=== PATIENT | female | born 1940 | race Caucasian/White ===

== ENCOUNTER 2016-05-04 21:01 | Emergency (ER) | payer OTHER ==
[2016-05-04] MEDS ORDERED: IPRATROPIUM/ALBUTEROL 3 ML DEYVIAL ONE (21:07)
--- NOTE | 2016-05-04 21:21 | EDPHY ---
H & P Time Seen by Provider: 05/04/16 21:10 HPI/ROS: CHIEF COMPLAINT: Right leg bruising, calf swelling HISTORY OF PRESENT ILLNESS: The patient is status post right hip surgery on in the week of March. She was discharged to rehab and eventually was discharged home last Thursday. She presents to the ED tonight after she developed some increased pain in bruising along the lateral aspect of her leg extending below the knee into the calf. The patient does have chronic dyspnea from her COPD. She reports slight worsening dyspnea secondary to feeling anxious. The patient denies pleuritic chest pain. The patient had been on a anticoagulant postoperatively. She believes she stop taking at within the past week. The patient does have a chronic hematoma to her surgical incision which is not increased in size. She denies fever. The patient tells me she had been on Lidoderm patches for her leg pain following surgery but this was discontinued after she left rehab. The patient denies additional acute complaints. She has not sustained a new fall or trauma. REVIEW OF SYSTEMS: A comprehensive 10 point review of systems is otherwise negative aside from elements mentioned in the history of present illness. Source: Patient Exam Limitations: No limitations - Personal History Tetanus Vaccine Date: 2007 - Medical/Surgical History Hx Asthma: No Hx Chronic Respiratory Disease: Yes Hx Diabetes: No Hx Cardiac Disease: No Hx Renal Disease: No Hx Cirrhosis: No Hx Alcoholism: No Hx HIV/AIDS: No Hx Splenectomy or Spleen Trauma: No Other PMH: Past medical history: COPD; HTN - Social History Smoking Status: Former smoker - Physical Exam Exam: General Appearance: Alert, thin female, frail Head: Atraumatic Eyes: Pupils equal, round, reactive ENT, Mouth: No hemotympanum, no oral trauma Neck: Nontender, trachea midline Respiratory: Tachypnea, distant breath sounds, no wheezing, no crackles Cardiovascular: Regular rate and rhythm Abdomen: Abdomen is soft and nontender, pelvis stable Skin: Surgical incision is clean dry and intact, ecchymotic changes noted throughout the lateral aspect of the right leg below the knee into the calf. Back: No midline T/L/S pain Extremities: Stable sub incisional hematoma noted to the right hip, slight asymmetric swelling noted to the right calf, minimal calf tenderness, tenderness to palpation along the area of the hematoma and ecchymoses of the right femur Neurological: 5/5 strength noted at the right lower extremity. Sensation intact to light touch Constitutional: Initial Vital Signs Temperature (C) 36.9 C 05/04/16 21:14 Heart Rate 88 05/04/16 21:14 Respiratory Rate 28 H 05/04/16 21:14 Blood Pressure 149/89 H 05/04/16 21:14 O2 Sat (%) 94 05/04/16 21:14 O2 Delivery Mode Nasal Cannula O2 (L/minute) 5 Allergies/Adverse Reactions: aspirin Allergy (Verified 04/06/16 20:09) NOSE BLEED Home Medications: Medication Instructions Recorded ALPRAZolam [Xanax 0.25 MG (*)] 0.125 mg PO TID PRN 09/06/14 Albuterol [Proventil Inhaler HFA 1 - 2 puffs IH Q4 PRN 09/06/14 (*)] Fluticasone/Salmeter 250/50Mcg 1 puffs IH BID 09/06/14 [Advair 250/50 (*)] Lisinopril [Zestril 10 mg (*)] 10 mg PO DAILY 09/06/14 Mometasone Furoate Nasal [Nasonex] 2 sprays NASAL BID PRN 01/15/15 Albuterol [Proventil Neb] 3 ml IH Q2 PRN #100 deyvial 06/10/15 predniSONE 30 mg PO DAILY 04/06/16 Ferrous Sulfate [Ferrous Sulf 325 325 mg PO BID #0 tab 04/18/16 MG (*)] Tiotropium Inhaler [Spiriva 18 mcg IH DAILY #0 mdi 04/18/16 Handihaler] predniSONE 30 mg PO DAILY #0 tablet 04/18/16 Lidocaine 5% [Lidoderm 5% Patch 2 ea TD DAILY #30 patch 05/04/16 (*)] Senokot 05/04/16 Xanax 05/04/16 Medical Decision Making - Diagnostics Imaging: Right leg ultrasound: Negative for DVT. Resolving seroma. Chest x-ray: Images reviewed by myself and discussed with radiologist Dr. Alcazar. Negative for focal infiltrate, chronic COPD is noted. ED Course/Re-evaluation: The patient presents to the ED with complaints of right calf pain and swelling. The patient has no evidence of a DVT. She does have evidence of a resolving hematoma. She is developing some dependent ecchymosis. The patient did receive a Lidoderm patch in the ED. The patient did receive a DuoNeb. Her chest x-ray demonstrates no evidence of a focal pneumonia. I do feel the patient can be discharged home with a prescription for Lidoderm patches. She is instructed to return to the emergency department for any acutely worsening chest pain, fever or other concerns. She should follow up with her regular orthopedic surgeon Dr. Paz for a recheck as scheduled. Differential Diagnosis: Differential diagnosis considered includes DVT, cellulitis, abscess, pneumonia, COPD exacerbation - Data Points Laboratory Results: Laboratory Results 05/04/16 21:20 05/04/16 21:20 05/04/16 21:20 WBC 5.00 10^3/uL (3.80-9.50) RBC 3.77 L 10^6/uL (4.18-5.33) Hgb 11.7 L g/dL (12.6-16.3) Hct 36.7 L % (38.0-47.0) MCV 97.3 fL (81.5-99.8) MCH 31.0 pg (27.9-34.1) MCHC 31.9 L g/dL (32.4-36.7) RDW 14.6 % (11.5-15.2) Plt Count 210 10^3/uL (150-400) MPV 8.9 fL (8.7-11.7) Neut % (Auto) 65.2 % (39.3-74.2) Lymph % (Auto) 23.0 % (15.0-45.0) [place] % (Auto) 9.4 % (4.5-13.0) Eos % (Auto) 1.6 % (0.6-7.6) Baso % (Auto) 0.2 L % (0.3-1.7) Nucleat RBC Rel Count 0.0 % (0.0-0.2) Absolute Neuts (auto) 3.26 10^3/uL (1.70-6.50) Absolute Lymphs (auto) 1.15 10^3/uL (1.00-3.00) Absolute Monos (auto) 0.47 10^3/uL (0.30-0.80) Absolute Eos (auto) 0.08 10^3/uL (0.03-0.40) Absolute Basos (auto) 0.01 L 10^3/uL (0.02-0.10) Absolute Nucleated RBC 0.00 10^3/uL (0-0.01) Immature Gran % 0.6 % (0.0-1.1) Immature Gran # 0.03 10^3/uL (0.00-0.10) PT 11.9 L SEC (12.0-15.0) INR 0.89 (0.83-1.16) APTT 24.2 SEC (23.0-38.0) Sodium 139 mEq/L (134-144) Potassium 4.8 mEq/L (3.5-5.2) Chloride 99 mEq/L (97-110) Carbon Dioxide 34 H mEq/l (22-31) Anion Gap 6 mEq/L (8-16) BUN 22 mg/dL (7-23) Creatinine 0.5 L mg/dL (0.6-1.0) Estimated GFR > 60 Glucose 112 H mg/dL (70-100) Calcium 9.0 mg/dL (8.5-10.4) Departure - Departure Disposition: Home, Routine, Self-Care Clinical Impression: Postoperative ecchymosis COPD (chronic obstructive pulmonary disease) Qualifiers: COPD type: emphysema Emphysema type: panlobular Qualifier Code: (J43.1) Panlobular emphysema Postoperative seroma Qualifiers: Surgical complication system/body Area: skin Condition: Fair Instructions: COPD (Chronic Obstructive Pulmonary Disease) (ED) Additional Instructions: 1. Lidoderm patch as directed. 2. Follow up as scheduled with Dr. Paz and Dr. Duckworth 3. Your ultrasound today demonstrates no evidence of a blood clot. I do recommend repeating the study in 2 weeks if you continue to have any calf pain or swelling.
[2016-05-04 21:35] LABS: % IMMATURE GRANULYOCYTES 0.6 % (0.0-1.1); ABSOLUTE IMMATURE GRANULOCYTES 0.03 10^3/uL (0.00-0.10); ADD DIFF? NO; ADD MORPH? NO; ADD SCAN? NO; ATYPICAL LYMPHOCYTE FLAG 10 (0-99); FRAGMENT RBC FLAG 0 (0-99); HEMATOCRIT 36.7 % (38.0-47.0); HEMOGLOBIN 11.7 g/dL (12.6-16.3); LEFT SHIFT FLG 0 (0-99); LIPEMIA HEMOLYSIS FLAG 80 (0-99); MEAN CELL HEMOGLOBIN CONCENTR. 31.9 g/dL (32.4-36.7); MEAN CELL VOLUME 97.3 fL (81.5-99.8); MEAN PLATELET VOLUME 8.9 fL (8.7-11.7); PLATELET CLUMPS FLAG 0 (0-99); PLATELET COUNT 210 10^3/uL (150-400); RED BLOOD CELL COUNT 3.77 10^6/uL (4.18-5.33); RED CELL DISTRIBUTION WIDTH 14.6 % (11.5-15.2)
[2016-05-04 21:45] LABS: APTT 24.2 SEC (23.0-38.0); INR 0.89 (0.83-1.16); PROTIME(PATIENT) 11.9 SEC (12.0-15.0)
[2016-05-04] MEDS ORDERED: LIDOCAINE/PRILOCAINE 1 EACH CRTUBE TP ONE (21:45)
--- NOTE | 2016-05-04 21:45 | DX ---
Portable Chest, Single View May 04, 2016 Indication: Dyspnea. Comparison: Portable chest dated April 17, 2016 Findings: Hyperinflation, diffuse peribronchial thickening, and linear scarring in the left midlung a re unchanged since 3 weeks prior. No pneumothorax, edema, consolidation or effusion. Heart size is luna rderline enlarged for technique. Hardware in the proximal right humerus is unchanged. Impression: 1. Chronic bronchitis unchanged. 2. No pneumonia or effusion.
[2016-05-04 21:47] LABS: ANION GAP 6 mEq/L (8-16); CARBON DIOXIDE 34 mEq/l (22-31); CHLORIDE 99 mEq/L (97-110); CREATININE 0.5 mg/dL (0.6-1.0); GLOMERULAR FILTRATION RATE > 60; GLUCOSE 112 mg/dL (70-100); POTASSIUM 4.8 mEq/L (3.5-5.2); SODIUM 139 mEq/L (134-144)
[2016-05-04 23:35] VITALS: BP 117/64; PULSE 75; RESP 16; TEMP 98.1; O2SAT 96
--- NOTE | 2016-05-05 06:26 | US ---
Right Lower Extremity Deep Venous Duplex Ultrasound Indication: Right leg swelling. Recent hip surgery. Technique: The right lower extremity deep venous system and veins of the proximal calf were interroga mckinley with grayscale, color, and spectral Doppler imaging. Findings: The common femoral, femoral, popliteal, greater saphenous and posterior tibial and peroneal veins of the calf normally compress on grayscale imaging. The deep venous system and superficial vei ns of the proximal calf have normal flow and expected variability. A fluid collection with internal s eptations, suggestive of a benign seroma, is present high in the upper right thigh near the incision. The collection measures 5 x 6 cm. Impression: 1. No deep venous thrombosis. 2. Seroma in right upper thigh. Comment: I relayed these results to Dr. Shlomo Castillo at time of study completion.
[2016-05-05] MEDS ORDERED: PATCH REMOVAL 1 EA PATCH TD SCH (21:00)
[2016-05-05] MEDS ORDERED: LIDOCAINE 5% 1 EA PATCH TD ONE (21:48)
== END 2016-05-04 23:35 | disposition home or self-care (01) ==
LOC: EDUNIT#
DX: M96.840 Postprocedural hematoma of a musculoskeletal structure following a musculoskeletal system procedure (principal); I10 Essential (primary) hypertension; J43.1 Panlobular emphysema; Z87.891 Personal history of nicotine dependence

== ENCOUNTER 2016-06-10 10:18 | Inpatient (IN) | payer OTHER ==
--- NOTE | 2016-06-10 10:16 | EDPHY ---
H & P HPI/ROS: CHIEF COMPLAINT: Shortness of breath. HISTORY OF PRESENT ILLNESS: 75-year-old female with a history of COPD presents via EMS on CPAP for acute shortness of breath. She was 88% on her normal 6L oxygen when EMS arrived at her house. She had self-administered Albuterol to no effect. Her shortness of breath began this morning. She has had cold symptoms for the past week including cough but says her antibiotics have been helping. EMS placed her on CPAP machine. No fever, chills, peripheral edema, chest pain, palpitations, vomiting, diarrhea, urinary complaints, headache, lightheadedness. REVIEW OF SYSTEMS: Limited secondary to patient's clinical condition. PAST MEDICAL HISTORY: SOCIAL HISTORY: VITAL SIGNS: Reviewed by me, BP 178/127. GENERAL: Agitated. Thin, moderate respiratory distress. HEENT: Atraumatic. Eyes: No icterus, no injection. Mouth: moist mucous membranes. No erythema or lesions. Neck: supple with no adenopathy. LUNGS: Visibly tachypneic. Diminished breath sounds. Anterior wheezes. Retractions and accessary muscle use. Weak, ineffective cough. No rhonchi or rales. CARDIAC: Tachycardic. Regular rhythm, no rubs, murmurs or gallops. ABDOMEN: Soft, nontender, nondistended, bowel sounds normal. BACK: No CVA tenderness. EXTREMITIES: No trauma. No edema. Range of motion is normal throughout. NEURO: Alert and oriented, grossly nonfocal. SKIN: Warm and dry, no rash. PSYCHIATRIC: Normal mentation, no agitation. Portions of this note were transcribed by a medical coder. I personally performed a history, physical exam, medical decision making, and confirmed accuracy of information the transcribed note. Constitutional: Initial Vital Signs Temperature (C) 37.2 C 06/10/16 10:42 Heart Rate 95 06/10/16 10:42 Respiratory Rate 32 H 06/10/16 10:42 Blood Pressure 178/127 H 06/10/16 10:42 O2 Sat (%) 99 06/10/16 10:42 O2 Delivery Mode CPAP Allergies/Adverse Reactions: aspirin Allergy (Verified 04/06/16 20:09) NOSE BLEED Home Medications: Medication Instructions Recorded ALPRAZolam [Xanax 0.25 MG (*)] 0.125 - 0.25 mg PO QID PRN 09/06/14 Albuterol [Proventil Inhaler HFA 1 - 2 puffs IH Q4 PRN 09/06/14 (*)] Fluticasone/Salmeter 250/50Mcg 1 puffs IH BID 09/06/14 [Advair 250/50 (*)] Lisinopril [Zestril 10 mg (*)] 10 mg PO DAILY PRN 09/06/14 Mometasone Furoate Nasal [Nasonex] 2 sprays NASAL BID PRN 01/15/15 Tiotropium Inhaler [Spiriva 18 mcg IH DAILY #0 mdi 04/18/16 Handihaler] Albuterol [Proventil Neb] 3 ml IH PRN PRN 06/10/16 Budesonide [Budesonide 0.5MG/2Ml 0.5 mg IH BID 06/10/16 Neb (*)] Furosemide [Lasix 20 MG (*)] 20 mg PO BID PRN 06/10/16 Ipratropium/Albuterol [Duoneb (*)] 3 ml IH BID 06/10/16 Ipratropium/Albuterol [Duoneb (*)] 3 ml IH Q4 PRN 06/10/16 Levalbuterol 1.25 mg [Xopenex 1.25 mg IH TID@,,06/10/16 1.25MG Neb (*)] predniSONE [Prednisone] 20 mg PO .DAILY X 3 06/11 MDD BEGIN 06/10/16 TOMORROW predniSONE [predniSONE] 10 mg PO .DAILY X 3 06/1406/10/16 Medical Decision Making - Diagnostics Imaging: X-ray chest was obtained. I viewed the images myself on the PACS system. My interpretation of the images is: no pneumothorax, no infiltrates. Similar to 2 months ago. The radiologist interpretation is pending at this time. I discussed the x-ray findings with the patient. ED Course/Re-evaluation: I met EMS on arrival and obtained a report from the keno dealer. Respiratory therapy was at bedside. Portable chest x-ray ordered. An IV was established and labs ordered. DuoNeb treatment administered for breathing along with Solu- Medrol 125mg IV. I reevaluated this patient at 1100. She is feeling better and can now speak in full sentences. She tells me she had a fever last week of 100.7/100.8. A flu swab was sent to the lab. She is still on bipap with continuous neb. She is moving air much better than on her initial presentation. Plan for admission. Patient positive for influenza A. 1122: Consulted with Jackie Miner, hospitalist. While in the emergency department the patient is able to be taken off her BiPAP and placed on 6 L O2. However, when she got up to go to the bathroom at the bedside commode she again became quite short of breath and tachypneic. She received an additional albuterol nebulizer treatment. Differential Diagnosis: Differential diagnosis for the patient's shortness of breath was considered including but not limited to pulmonary infectious processes, COPD exacerbation, pulmonary emboli, pulmonary edema, congestive heart failure, and cardiac causes. Consult/Admit Bed Type: Dr. Mónica Mejia, step-down - Data Points Laboratory Results: Laboratory Results 06/10/16 10:27 06/10/16 10:27 06/10/16 06/10/16 06/10/16 10:31 10:27 10:27 WBC 5.25 10^3/uL 10^3/uL (3.80-9.50) RBC 4.73 10^6/uL 10^6/uL (4.18-5.33) Hgb 14.1 g/dL g/dL (12.6-16.3) Hct 45.1 % % (38.0-47.0) MCV 95.3 fL fL (81.5-99.8) MCH 29.8 pg pg (27.9-34.1) MCHC 31.3 g/dL L g/dL (32.4-36.7) RDW 13.2 % % (11.5-15.2) Plt Count 152 10^3/uL 10^3/uL (150-400) MPV 9.9 fL fL (8.7-11.7) Neut % (Auto) 80.4 % H % (39.3-74.2) Lymph % (Auto) 15.0 % % (15.0-45.0) [place] % (Auto) 3.6 % L % (4.5-13.0) Eos % (Auto) 0.4 % L % (0.6-7.6) Baso % (Auto) 0.2 % L % (0.3-1.7) Nucleat RBC Rel Count 0.0 % % (0.0-0.2) Absolute Neuts (auto) 4.22 10^3/uL 10^3/uL (1.70-6.50) Absolute Lymphs (auto) 0.79 10^3/uL L 10^3/uL (1.00-3.00) Absolute Monos (auto) 0.19 10^3/uL L 10^3/uL (0.30-0.80) Absolute Eos (auto) 0.02 10^3/uL L 10^3/uL (0.03-0.40) Absolute Basos (auto) 0.01 10^3/uL L 10^3/uL (0.02-0.10) Absolute Nucleated RBC 0.00 10^3/uL 10^3/uL (0-0.01) Immature Gran % 0.4 % % (0.0-1.1) Immature Gran # 0.02 10^3/uL 10^3/uL (0.00-0.10) VBG Lactic Acid 1.3 mmol/L mmol/L (0.7-2.1) Sodium 144 mEq/L mEq/L (134-144) Potassium 4.6 mEq/L mEq/L (3.5-5.2) Chloride 97 mEq/L mEq/L (97-110) Carbon Dioxide 36 mEq/l H mEq/l (22-31) Anion Gap 11 mEq/L mEq/L (8-16) BUN 14 mg/dL mg/dL (7-23) Creatinine 0.5 mg/dL L mg/dL (0.6-1.0) Estimated GFR > 60 Glucose 107 mg/dL H mg/dL (70-100) Calcium 9.7 mg/dL mg/dL (8.5-10.4) Troponin I < 0.012 ng/mL ng/mL (0-0.034) NT-Pro-B Natriuret Pep 262 pg/mL pg/mL (0-450) Medications Given: Discontinued Medications Albuterol (Proventil Neb) 3 ml IH EDNOW ONE Stop: 06/10/16 10:28 Last Admin: 06/10/16 11:01 Dose: Not Given Lorazepam (Ativan Injection) 1 mg IVP EDNOW ONE Stop: 06/10/16 12:21 Last Admin: 06/10/16 12:40 Dose: Not Given Methylprednisolone Sodium Succinate (Solu-Medrol) 125 mg IVP EDNOW ONE Stop: 06/10/16 10:28 Last Admin: 06/10/16 10:45 Dose: 125 mg Departure - Departure Disposition: [facility] Clinical Impression: COPD exacerbation, Influenza A, Acute respiratory failure Condition: Serious Report Scribed for: Rosita Thompson Report Scribed by: Hernandez Moran Date of Report: 06/10/16 Time of Report: 10:27
[2016-06-10] MEDS ORDERED: methylPREDNISolone SOD SUCC 125 MG/2 ML VIAL ONE (10:25)
[2016-06-10] MEDS ORDERED: ALBUTEROL 3 ML DEYVIAL IH ONE (10:27)
[2016-06-10] MEDS ORDERED: ALBUTEROL 3 ML DEYVIAL ONE (10:27)
[2016-06-10] MEDS ORDERED: methylPREDNISolone SOD SUCC 125 MG/2 ML VIAL IVP ONE (10:27)
[2016-06-10 10:35] LABS: % IMMATURE GRANULYOCYTES 0.4 % (0.0-1.1); ABSOLUTE IMMATURE GRANULOCYTES 0.02 10^3/uL (0.00-0.10); ADD DIFF? NO; ADD MORPH? NO; ADD SCAN? NO; ATYPICAL LYMPHOCYTE FLAG 70 (0-99); FRAGMENT RBC FLAG 0 (0-99); HEMATOCRIT 45.1 % (38.0-47.0); HEMOGLOBIN 14.1 g/dL (12.6-16.3); LEFT SHIFT FLG 0 (0-99); LIPEMIA HEMOLYSIS FLAG 80 (0-99); MEAN CELL HEMOGLOBIN 29.8 pg (27.9-34.1); MEAN CELL HEMOGLOBIN CONCENTR. 31.3 g/dL (32.4-36.7); MEAN CELL VOLUME 95.3 fL (81.5-99.8); MEAN PLATELET VOLUME 9.9 fL (8.7-11.7); PLATELET CLUMPS FLAG 0 (0-99); PLATELET COUNT 152 10^3/uL (150-400); RED BLOOD CELL COUNT 4.73 10^6/uL (4.18-5.33); RED CELL DISTRIBUTION WIDTH 13.2 % (11.5-15.2)
--- NOTE | 2016-06-10 10:58 | DX ---
Portable Chest, 10:36 AM History: Dyspnea Comparison: May 04, 2016 Findings: Radio opaque apparatus and EKG leads overlies the upper chest. Bilateral lower lung zone i nterstitial disease and sparse upper lung vessels consistent with underlying emphysema vane not sign ificantly changed. Lung volumes are larger than they were previously suggesting an element of air tr apping. There is no new focal infiltrate or consolidation. There is no obvious pleural effusion. Heart size is stable. There is stable atherosclerotic calcification of the aortic arch. Impression: Increased lung volumes.? Acute air trapping.
[2016-06-10 11:07] LABS: ANION GAP 11 mEq/L (8-16); CALCIUM 9.7 mg/dL (8.5-10.4); CARBON DIOXIDE 36 mEq/l (22-31); CHLORIDE 97 mEq/L (97-110); CREATININE 0.5 mg/dL (0.6-1.0); GLOMERULAR FILTRATION RATE > 60; GLUCOSE 107 mg/dL (70-100); POTASSIUM 4.6 mEq/L (3.5-5.2); SODIUM 144 mEq/L (134-144)
--- NOTE | 2016-06-10 11:13 | CPEKG ---
Heart Rate: 81 RR Interval: 741 P-R Interval: 132 QRSD Interval: 84 QT Interval: 380 QTC Interval: 441 P [place]: 83 QRS [place]: 75 T Wave [place]: 68 EKG Severity - ABNORMAL ECG - EKG Impression: SINUS RHYTHM EKG Impression: CONSIDER LEFT VENTRICULAR HYPERTROPHY Electronically Signed By: Rosita Thompson 10-Jun-2016 21:54:22
[2016-06-10 11:16] LABS: TROPONIN I < 0.012 ng/mL (0-0.034)
[2016-06-10] MEDS ORDERED: LORazepam 2 MG/ML INJ IVP ONE (12:20)
[2016-06-10] MEDS: ALPRAZolam 0.25 MG TAB PO PRN ×2 (12:48→17:07)
[2016-06-10] MEDS ORDERED: IPRATROPIUM/ALBUTEROL 3 ML DEYVIAL IH PRN (12:50)
[2016-06-10] MEDS ORDERED: ALPRAZolam 0.25 MG TAB PO PRN (14:04)
[2016-06-10] MEDS ORDERED: ACETAMINOPHEN 325 MG TAB PO PRN (14:08)
[2016-06-10] MEDS ORDERED: ONDANSETRON 4 MG/2 ML VIAL IVP PRN (14:08)
[2016-06-10] MEDS ORDERED: NS 1,000 ML IV SCH (14:15)
--- NOTE | 2016-06-10 15:04 | GHP ---
[f rep st] HISTORY AND PHYSICAL DATE OF ADMISSION: 06/10/2016 CHIEF COMPLAINT: Shortness of breath. HISTORY: The patient is a 75-year-old female with very advanced COPD, wearing 4-6 L of oxygen at [facility]. She was here in March with a broken hip and had severe problems with her COPD with a pro longed hospitalization to repair this hip fracture. She went to [facility] for 2 weeks and then has been home now for about a month and was doing very well until she rehabbed back to her baseline. Ap proximately 1 week ago, her daughter brought home an upper respiratory tract illness which the patie nt subsequently caught from her. She has a protocol that she follows at home when she gets a viral illness, includes initiating prednisone. She completed a course of Zithromax. She increased her ne bulizers. She was actually doing quite well for about a week maintaining an adequate clinical statu s for staying home and treating this at home until this morning when suddenly she developed acute wo rsening shortness of breath. Her chest is very tight. She has a dry cough and feels like she has a lot of mucus that she is unable to bring up. She did get a flu shot this year. She had fever last week of 100.7, but no fever recently. Shortness of breath became very severe today, she called 911 . She improved on route in the ambulance when they initiated her on CPAP. PAST MEDICAL HISTORY: 1. COPD with chronic respiratory failure. She uses 4 L of oxygen when she is using a tank, 6 L of oxygen when she is on a concentrator. 2. Osteoporosis with compression and hip fracture. 3. Hypertension. 4. Anxiety. PAST SURGICAL HISTORY: 1. Hip fracture. 2. Shoulder surgery. 3. Hernia surgery. 4. Hysterectomy. MEDICATIONS: Please see computer record for full detailed list. ALLERGIES: Aspirin. SOCIAL HISTORY: She has a 50 pack-year smoking history. She quit 5 years ago. No alcohol. She li ves with her daughter. 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 REVIEW OF SYSTEMS: Complete review of systems obtained. Review of systems is negative regarding co nstitutional, HEENT, GI, pulmonary, cardiovascular, , hematology, skin, musculoskeletal, endocrine , psych, except for positives and negative which was as in HPI. FAMILY HISTORY: Reviewed, noncontributory to presenting complaint. PHYSICAL EXAMINATION: GENERAL: Well-developed, well-nourished female, in mild respiratory distress . VITAL SIGNS: Temp is 37.2, pulse 95, blood pressure 178/127, saturating 95% on CPAP, although cu rrently, she is saturating okay on 4 L nasal cannula. HEENT: Eyes: Normal conjunctivae. Pupils e qual and reactive to light. ENT: Normal ears and nose. Hearing intact. Normal teeth. Oropharynx moist. NECK: Trachea midline. No thyromegaly. CHEST: Increased respiratory effort with mild re spiratory distress. Bilateral wheezing heard, mostly at end expiration with coughing. Decreased br eath sounds throughout. CARDIOVASCULAR: Regular rhythm. No murmur. No lower extremity edema. AB DOMEN: Soft, nontender. No hepatosplenomegaly. SKIN: Warm, dry, intact without rash. MUSCUL[place]KE LETAL: No cyanosis or clubbing. Strength 5/5, upper and lower extremities. NEUROLOGIC: Cranial n erves intact. Normal sensation to light touch. PSYCH ASSESSMENT: Alert and oriented x3. Normal m ood and affect. Normal judgment and insight. Normal memory. LABS: White count 5.27, hematocrit 45.1, platelets 152. Sodium 144, potassium 4.6, chloride 97, bi carb 36, BUN 14, creatinine 0.5. Glucose 107. Troponins negative. BNP is 262. Lactate is 1.3. I nfluenza is positive. EKG viewed by me. My personal interpretation is normal sinus rhythm, no ST o r T-wave changes. Chest x-ray consistent with hyperinflation consistent with COPD. There is no inf iltrate. ASSESSMENT/PLAN: 1. Acute on chronic respiratory failure. She is being admitted to Step Down, and we will continue with BiPAP as needed. 2. Chronic obstructive pulmonary disease exacerbation. We will increase her prednisone and do sche duled nebulizers. 3. Influenza A. We will initiate Tamiflu. I do not currently see any evidence of a bacterial seco ndary pneumonia .. 4. Osteoporosis with recent hip fracture. She was rehabbing very well and did have a nice recovery from this. She desires to limit her oral steroids as much as possible but understands she will nee d them again in the short term. 5. Anxiety. We will continue Xanax as needed. CODE STATUS: Full. ADMISSION STATUS: 1. We will admit to inpatient given the severity of her baseline COPD. Anticipate greater than 2 m idnights will be required for stabilization. 2. DVT prophylaxis: She is high risk, so will prescribe subcu Lovenox. /[id number]/MODL
[2016-06-10] MEDS ORDERED: GUAIFENESIN/DM 10 ML UDCUP PO PRN (15:31)
--- NOTE | 2016-06-10 16:10 | GCON ---
[f rep st] CONSULTATION ASSOCIATE RESEARCH SCIENTIST CONSULTATION. REASON FOR ADMISSION: Acute exacerbation of emphysema, influenza A. HISTORY OF PRESENT ILLNESS: The patient is a very pleasant 75-year-old white female, well known to me, with severe emphysema. She also has hypertension, pulmonary hypertension, and osteopenia. She presents with a 1-week history of increasing breathlessness. In discussing with the patient, she st ates that up until a week ago she was in a normal state of health. Her daughter and son came down w ith what was likely influenza, and she has suddenly developed this. Over the last 24 hours, she has increasing breathlessness, worsening in the form of exertion. She admits to a cough that is distin ctly nonproductive. There is no hemoptysis, however. She denies any chest pain, pleuritic-type rodrigo st pain, or anginal equivalent. There is no fever nor night sweats. She was seen in the emergency room and subsequently admitted to the step-down unit. PAST MEDICAL HISTORY: Significant for emphysema, hypertension, pulmonary hypertension, and osteopen ia. ALLERGIES: Aspirin. SOCIAL HISTORY: Previous heavy smoker, none for several years. No significant alcohol use. 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 She lives with her daughter and has excellent family support. PHYSICAL EXAM: VITAL SIGNS: Blood pressure is 145/81, pulse 95, respirations 22, temp 37.1, oxygen saturation 95% on 6 L. GENERAL: She is a thin 75-year-old white female who is in mild respiratory distress. HEENT: Eyes: GIULIANO. EOMI. Throat shows no erythema or tonsillar hypertrophy. NECK: Supple. There is no cervical adenopathy. HEART: Regular rate and rhythm with a 2/6 systolic murmu r in the left sternal border without radiation. LUNGS: Diminished breath sounds. There is no whee ze. There is a significant prolongation expiratory phase. She is tachypneic. ABDOMEN: Soft, nont shira. Bowel sounds are present in all 4 quadrants. EXTREMITIES: No clubbing, cyanosis, or edema. LABORATORIES: White count is 5.2, hemoglobin 14, hematocrit 45, platelet count is 152. Lactate 1.3 . Sodium 144, potassium 4.6, chloride 97, CO2 36, BUN is 14, creatinine 0.5, glucose is 107. She i s positive for influenza A. Chest x-ray shows mild hyperinflation, otherwise clear. IMPRESSION: 1. Emphysema. 2. Acute exacerbation of her emphysema. 3. Influenza A. 4. Hypertension. 5. Pulmonary hypertension. 6. Respiratory failure. RECOMMENDATIONS: 1. Agree with Tamiflu. 2. IV steroids consisting of Solu-Medrol 125 q.6. 3. Give nebulized treatments with both albuterol and Atrovent. 4. Anxiety control. 5. DVT and PE prophylaxis. 6. Stress ulcer prophylaxis. 7. We will provide some cough suppression. /[id number]/MODL
[2016-06-10] MEDS: ACETYLCYSTEINE 10% 30 ML VIAL IH SCH (16:42)
[2016-06-10] MEDS: IPRATROPIUM/ALBUTEROL 3 ML DEYVIAL IH SCH ×2 (16:42→21:29)
[2016-06-10] MEDS: OSELTAMIVIR PHOSPHATE 75 MG CAP PO SCH (17:07)
[2016-06-10] MEDS: methylPREDNISolone SOD SUCC 125 MG/2 ML VIAL IVP SCH (17:08)
[2016-06-10] MEDS ORDERED: predniSONE 20 MG TAB PO SCH (18:00)
[2016-06-10] MEDS: FLUTICASONE/SALMETER 250/50MCG DISKUS IH SCH (21:30)
[2016-06-10] MEDS: BUDESONIDE 0.5 MG/2 ML AMPUL.NEB IH SCH (21:30)
[2016-06-10] MEDS ORDERED: LEVALBUTEROL 1.25 MG/3 ML DEYVIAL IH SCH (22:00)
[2016-06-11] MEDS: ALBUTEROL 3 ML DEYVIAL IH PRN ×5 (00:16→21:41)
[2016-06-11] MEDS: ACETYLCYSTEINE 10% 30 ML VIAL IH SCH ×3 (00:16→11:23)
[2016-06-11] MEDS: methylPREDNISolone SOD SUCC 125 MG/2 ML VIAL IVP SCH ×4 (00:36→17:58)
[2016-06-11] MEDS: ALPRAZolam 0.25 MG TAB PO PRN (06:00)
[2016-06-11] MEDS: IPRATROPIUM/ALBUTEROL 3 ML DEYVIAL IH SCH ×3 (06:08→16:59)
[2016-06-11 06:18] LABS: % IMMATURE GRANULYOCYTES 0.7 % (0.0-1.1); ABSOLUTE IMMATURE GRANULOCYTES 0.03 10^3/uL (0.00-0.10); ADD DIFF? NO; ADD MORPH? NO; ADD SCAN? NO; ATYPICAL LYMPHOCYTE FLAG 40 (0-99); FRAGMENT RBC FLAG 0 (0-99); HEMATOCRIT 41.2 % (38.0-47.0); HEMOGLOBIN 13.2 g/dL (12.6-16.3); LEFT SHIFT FLG 0 (0-99); LIPEMIA HEMOLYSIS FLAG 80 (0-99); MEAN CELL HEMOGLOBIN 30.3 pg (27.9-34.1); MEAN CELL VOLUME 94.7 fL (81.5-99.8); PLATELET CLUMPS FLAG 0 (0-99); PLATELET COUNT 156 10^3/uL (150-400); RED BLOOD CELL COUNT 4.35 10^6/uL (4.18-5.33)
[2016-06-11 06:40] LABS: ANION GAP 7 mEq/L (8-16); CALCIUM 9.8 mg/dL (8.5-10.4); CARBON DIOXIDE 37 mEq/l (22-31); CHLORIDE 95 mEq/L (97-110); CREATININE 0.5 mg/dL (0.6-1.0); GLOMERULAR FILTRATION RATE > 60; GLUCOSE 103 mg/dL (70-100); POTASSIUM 4.8 mEq/L (3.5-5.2); SODIUM 139 mEq/L (134-144)
[2016-06-11] MEDS: OSELTAMIVIR PHOSPHATE 75 MG CAP PO SCH ×2 (08:30→17:56)
[2016-06-11] MEDS: ENOXAPARIN 40 MG/0.4 ML SYR SC SCH (08:31)
[2016-06-11] MEDS: BUDESONIDE 0.5 MG/2 ML AMPUL.NEB IH SCH ×2 (08:43→21:40)
[2016-06-11] MEDS: FLUTICASONE/SALMETER 250/50MCG DISKUS IH SCH ×2 (08:43→21:41)
--- NOTE | 2016-06-11 08:50 | PDINTPN ---
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 Objective: Vital Signs Temp Pulse Resp BP Pulse Ox 36.4 C 81 14 139/79 H 97 06/11/16 07:32 06/11/16 07:32 06/11/16 07:32 06/11/16 07:32 06/11/16 07:32 Laboratory Results 06/11/16 06:05 06/11/16 06:05 06/10/16 06/11/16 06/12/16 05:59 05:59 05:59 Intake Total 1100 Output Total 100 Balance 1000 Physical Exam - Physical Exam General Appearance: alert, moderate distress EENT: PERRL/EOMI, normal ENT inspection, pharynx normal, TMs normal Neck: non-tender, full range of motion, supple, normal inspection Respiratory: respiratory distress (mod), decreased breath sounds, prolonged expiration, No wheezing Cardiac/Chest: normal peripheral pulses, regular rate, rhythm Peripheral Pulses: 2+: carotid (R), carotid (L), femoral (R), femoral (L), dorsalis-pedis (R), dorsalis-pedis (L) Abdomen: normal bowel sounds, non-tender, soft Pelvic Exam: deferred Rectal: deferred Skin: normal color, warm/dry Extremities: normal range of motion, non-tender, normal inspection, normal capillary refill ICD10 Worksheet Patient Problems: Problems Problem Status Onset COPD exacerbation Acute Influenza A Acute COPD exacerbation Acute Chronic obstructive pulmonary disease with acute exacerbation Acute Hip fracture Acute Traumatic compression fracture of T9 thoracic vertebra Acute
[2016-06-11] MEDS: ALPRAZolam 0.25 MG TAB PO SCH ×3 (12:30→22:37)
[2016-06-11] MEDS ORDERED: FUROSEMIDE 20 MG TAB PO PRN (13:03)
[2016-06-11] MEDS ORDERED: MOMETASONE FUROATE NASAL PRN ×2 (13:03→13:05)
[2016-06-11] MEDS ORDERED: LISINOPRIL 10 MG TAB PO PRN (13:03)
[2016-06-11] MEDS ORDERED: ACETYLCYSTEINE 10% 30 ML VIAL IH PRN (15:24)
--- NOTE | 2016-06-11 15:36 | HOSPPROG ---
Hospitalist Progress Note Assessment/Plan: * Acute on chronic respiratory failure -BIPAP prn - still struggling/fatigued -baseline 4-6 L * Influenza A -tamiflu * COPD exacerbation -steroids, nebs * Anxiety - Xanax * Osteoporosis with recent hip fracture -PT/OT Subjective: Still struggling to breathe. Not sure she is much better Objective: Vital Signs Temp Pulse Resp BP Pulse Ox 37 C 80 22 H 135/74 H 97 06/11/16 14:42 06/11/16 14:42 06/11/16 14:42 06/11/16 11:05 06/11/16 14:42 Laboratory Results 06/11/16 06:05 06/11/16 06:05 06/10/16 06/11/16 06/12/16 05:59 05:59 05:59 Intake Total 1100 Output Total 100 Balance 1000 - Physical Exam Constitutional: no apparent distress, appears nourished, not in pain Cardiovascular: regular rate and rhythym, no murmur, rub, or gallop Respiratory: reduced air movement, expiratory wheeze, respiratory distress, other (accessory muscels) Gastrointestinal: normoactive bowel sounds, soft, non-tender abdomen, no palpable masses Skin: no rashes or abrasions, no fluctuance, no induration Neurologic: AAOx3, sensation intact bilaterally Psychiatric: interacting appropriately, not anxious, not encephalopathic, thought process linear ICD10 Worksheet Patient Problems: Problems Problem Status Onset COPD exacerbation Acute Influenza A Acute COPD exacerbation Acute Chronic obstructive pulmonary disease with acute exacerbation Acute Hip fracture Acute Traumatic compression fracture of T9 thoracic vertebra Acute
[2016-06-12] MEDS: methylPREDNISolone SOD SUCC 125 MG/2 ML VIAL IVP SCH ×4 (00:01→17:54)
[2016-06-12] MEDS: IPRATROPIUM/ALBUTEROL 3 ML DEYVIAL IH SCH ×5 (00:49→23:56)
[2016-06-12] MEDS: ALBUTEROL 3 ML DEYVIAL IH PRN ×2 (03:29→09:25)
[2016-06-12 06:11] LABS: % IMMATURE GRANULYOCYTES 0.6 % (0.0-1.1); ABSOLUTE IMMATURE GRANULOCYTES 0.06 10^3/uL (0.00-0.10); ADD DIFF? NO; ADD MORPH? NO; ADD SCAN? NO; ATYPICAL LYMPHOCYTE FLAG 10 (0-99); FRAGMENT RBC FLAG 0 (0-99); HEMATOCRIT 40.8 % (38.0-47.0); HEMOGLOBIN 12.9 g/dL (12.6-16.3); LEFT SHIFT FLG 0 (0-99); LIPEMIA HEMOLYSIS FLAG 80 (0-99); MEAN CELL HEMOGLOBIN 30.1 pg (27.9-34.1); MEAN CELL HEMOGLOBIN CONCENTR. 31.6 g/dL (32.4-36.7); MEAN CELL VOLUME 95.3 fL (81.5-99.8); PLATELET CLUMPS FLAG 30 (0-99); PLATELET COUNT 168 10^3/uL (150-400); RED BLOOD CELL COUNT 4.28 10^6/uL (4.18-5.33); RED CELL DISTRIBUTION WIDTH 13.2 % (11.5-15.2)
[2016-06-12 06:41] LABS: ANION GAP 9 mEq/L (8-16); CALCIUM 9.3 mg/dL (8.5-10.4); CARBON DIOXIDE 37 mEq/l (22-31); CHLORIDE 95 mEq/L (97-110); CREATININE 0.5 mg/dL (0.6-1.0); GLOMERULAR FILTRATION RATE > 60; GLUCOSE 112 mg/dL (70-100); POTASSIUM 4.6 mEq/L (3.5-5.2); SODIUM 141 mEq/L (134-144)
[2016-06-12] MEDS: ALPRAZolam 0.25 MG TAB PO SCH ×3 (08:06→23:17)
[2016-06-12] MEDS: ENOXAPARIN 40 MG/0.4 ML SYR SC SCH (08:06)
[2016-06-12] MEDS: OSELTAMIVIR PHOSPHATE 75 MG CAP PO SCH ×2 (08:06→17:54)
[2016-06-12] MEDS: BUDESONIDE 0.5 MG/2 ML AMPUL.NEB IH SCH ×2 (09:25→21:02)
[2016-06-12] MEDS: FLUTICASONE/SALMETER 250/50MCG DISKUS IH SCH ×2 (09:25→21:02)
--- NOTE | 2016-06-12 09:50 | PDINTPN ---
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 -Will increase xanax Subjective: More breathless. Objective: Vital Signs Temp Pulse Resp BP Pulse Ox 36.8 C 96 24 H 147/77 H 96 06/12/16 08:00 06/12/16 09:30 06/12/16 09:30 06/12/16 08:00 06/12/16 09:30 Laboratory Results 06/12/16 05:50 06/12/16 05:50 06/11/16 06/12/16 06/13/16 05:59 05:59 05:59 Intake Total 1100 750 Output Total 100 950 Balance 1000 -200 Physical Exam - Physical Exam General Appearance: WD/WN, alert EENT: PERRL/EOMI, normal ENT inspection, pharynx normal, TMs normal Neck: non-tender, full range of motion, supple, normal inspection Respiratory: decreased breath sounds, No normal breath sounds, No stridor, No wheezing Cardiac/Chest: normal peripheral pulses, regular rate, rhythm Peripheral Pulses: 2+: carotid (R), carotid (L), femoral (R), femoral (L), dorsalis-pedis (R), dorsalis-pedis (L) Abdomen: normal bowel sounds, non-tender, soft Pelvic Exam: deferred Rectal: deferred ICD10 Worksheet Patient Problems: Problems Problem Status Onset COPD exacerbation Acute Influenza A Acute COPD exacerbation Acute Chronic obstructive pulmonary disease with acute exacerbation Acute Hip fracture Acute Traumatic compression fracture of T9 thoracic vertebra Acute
[2016-06-12] MEDS ORDERED: ALPRAZolam 0.25 MG TAB PO SCH (10:56)
--- NOTE | 2016-06-12 11:16 | HOSPPROG ---
Hospitalist Progress Note Assessment/Plan: * Acute on chronic respiratory failure due to copd exacerbation in the setting of flu a and severe anxiety -BIPAP prn -taper solumedrol -cont nebs * Influenza A -tamiflu * COPD exacerbation -see above * Anxiety - Xanax * Osteoporosis with recent hip fracture -PT/OT Subjective: continues to feel short of breath. no fevers or chills. reports severe anxiety and would like to have her xanax changed to .125 to .25mg prn Objective: Vital Signs Temp Pulse Resp BP Pulse Ox 36.8 C 96 24 H 147/77 H 96 06/12/16 08:00 06/12/16 09:30 06/12/16 09:30 06/12/16 08:00 06/12/16 09:30 Laboratory Results 06/12/16 05:50 06/12/16 05:50 06/11/16 06/12/16 06/13/16 05:59 05:59 05:59 Intake Total 1100 750 Output Total 100 950 Balance 1000 -200 - Physical Exam Constitutional: chronically ill appearing, uncomfortable Cardiovascular: regular rate and rhythym, no murmur, rub, or gallop Respiratory: no respiratory distress, clear to auscultation, reduced air movement, No rhonchi Gastrointestinal: normoactive bowel sounds, soft, non-tender abdomen, no palpable masses Skin: no rashes or abrasions, no fluctuance, no induration Neurologic: AAOx3 Psychiatric: anxious ICD10 Worksheet Patient Problems: Problems Problem Status Onset Chronic obstructive pulmonary disease with acute exacerbation Acute Hip fracture Acute COPD exacerbation Acute Traumatic compression fracture of T9 thoracic vertebra Acute COPD exacerbation Acute Influenza A Acute
[2016-06-12] MEDS ORDERED: ALPRAZolam 0.25 MG TAB PO PRN (12:53)
[2016-06-13] MEDS: methylPREDNISolone SOD SUCC 125 MG/2 ML VIAL IVP SCH ×2 (00:25→06:02)
[2016-06-13] MEDS: ALBUTEROL 3 ML DEYVIAL IH PRN (03:27)
[2016-06-13] MEDS: IPRATROPIUM/ALBUTEROL 3 ML DEYVIAL IH SCH ×3 (05:48→16:43)
[2016-06-13] MEDS: ALPRAZolam 0.25 MG TAB PO SCH ×3 (08:24→21:34)
[2016-06-13] MEDS: OSELTAMIVIR PHOSPHATE 75 MG CAP PO SCH ×2 (08:24→17:54)
[2016-06-13] MEDS: ENOXAPARIN 40 MG/0.4 ML SYR SC SCH (08:25)
--- NOTE | 2016-06-13 10:13 | HOSPPROG ---
Hospitalist Progress Note Assessment/Plan: * Acute on chronic respiratory failure due to copd exacerbation in the setting of flu a and severe anxiety (IMPROVING) -dc Solumol and start prednisone 40mg daily -cont nebs -con t Xanax * Influenza A -tamiflu for 5 days * COPD exacerbation -see above * Anxiety - Xanax * Osteoporosis with recent hip fracture -PT/OT Subjective: improving work of breathing and anxiety since decreasing solumedrol yesterday Objective: Vital Signs Temp Pulse Resp BP Pulse Ox 36.9 C 84 18 149/79 H 93 06/13/16 07:35 06/13/16 07:35 06/13/16 07:35 06/13/16 07:35 06/13/16 07:35 Laboratory Results 06/12/16 05:50 06/12/16 05:50 06/12/16 06/13/16 06/14/16 05:59 05:59 05:59 Intake Total 750 Output Total 950 Balance -200 - Physical Exam Cardiovascular: regular rate and rhythym, no murmur, rub, or gallop Respiratory: clear to auscultation, reduced air movement, No expiratory wheeze, No inspiratory crackles Gastrointestinal: normoactive bowel sounds, soft, non-tender abdomen, no palpable masses, No guarding, No rebound Neurologic: AAOx3 Psychiatric: anxious ICD10 Worksheet Patient Problems: Problems Problem Status Onset Chronic obstructive pulmonary disease with acute exacerbation Acute Hip fracture Acute COPD exacerbation Acute Traumatic compression fracture of T9 thoracic vertebra Acute COPD exacerbation Acute Influenza A Acute
[2016-06-13] MEDS: BUDESONIDE 0.5 MG/2 ML AMPUL.NEB IH SCH ×2 (10:14→21:08)
[2016-06-13] MEDS: FLUTICASONE/SALMETER 250/50MCG DISKUS IH SCH ×2 (10:15→21:08)
[2016-06-13] MEDS ORDERED: FLUTICASONE NASAL 120 SPRAYS/16 GM MDI EACHNARE PRN (13:43)
--- NOTE | 2016-06-13 13:59 | SOAPPROG ---
SOAP Progress Note Assessment/Plan: Assessment/Plan: * Emphysema- * Acute exac COPD- improved -cont steroids, nebs * Influenza A-on tamiflu * Resp failure-still markedly breathless -wean fio2 * Anxiety-better controlled with increased xanax Subjective: Looks and feels better Objective: Vital Signs Temp Pulse Resp BP Pulse Ox 36.9 C 80 20 149/79 H 84 L 06/13/16 07:35 06/13/16 10:10 06/13/16 10:10 06/13/16 07:35 06/13/16 12:15 Laboratory Results 06/12/16 05:50 06/12/16 05:50 06/12/16 06/13/16 06/14/16 05:59 05:59 05:59 Intake Total 750 Output Total 950 Balance -200 Physical Exam - Physical Exam General Appearance: alert, no apparent distress EENT: PERRL/EOMI, normal ENT inspection, pharynx normal, TMs normal Neck: non-tender, full range of motion, supple, normal inspection Respiratory: decreased breath sounds, prolonged expiration, No wheezing Cardiac/Chest: normal peripheral pulses, regular rate, rhythm Peripheral Pulses: 2+: carotid (R), carotid (L), femoral (R), femoral (L), dorsalis-pedis (R), dorsalis-pedis (L) Abdomen: normal bowel sounds, non-tender, soft Pelvic Exam: deferred Rectal: deferred Neuro/Psych: no motor/sensory deficits, alert, normal mood/affect, oriented x 3 ICD10 Worksheet Patient Problems: Problems Problem Status Onset COPD exacerbation Acute Influenza A Acute COPD exacerbation Acute Chronic obstructive pulmonary disease with acute exacerbation Acute Hip fracture Acute Traumatic compression fracture of T9 thoracic vertebra Acute
[2016-06-14] MEDS: IPRATROPIUM/ALBUTEROL 3 ML DEYVIAL IH SCH ×3 (00:08→13:45)
[2016-06-14] MEDS ORDERED: SODIUM CL NASAL 45 ML BTL EACHNARE PRN ×2 (08:07→08:28)
[2016-06-14] MEDS: ALPRAZolam 0.25 MG TAB PO SCH ×2 (08:30→14:11)
[2016-06-14] MEDS: OSELTAMIVIR PHOSPHATE 75 MG CAP PO SCH ×2 (08:30→17:04)
[2016-06-14] MEDS ORDERED: predniSONE 20 MG TAB PO SCH (09:00)
[2016-06-14] MEDS: BUDESONIDE 0.5 MG/2 ML AMPUL.NEB IH SCH (09:20)
[2016-06-14] MEDS: FLUTICASONE/SALMETER 250/50MCG DISKUS IH SCH (09:21)
[2016-06-14] MEDS: ALBUTEROL 3 ML DEYVIAL IH PRN ×2 (09:37→16:24)
[2016-06-14] MEDS: ENOXAPARIN 40 MG/0.4 ML SYR SC SCH (09:38)
--- NOTE | 2016-06-14 12:58 | PDIAF ---
- Diagnosis Diagnosis: copd exacerbation Code Status: Full Code - Medication Management Discharge Medications: Medications to Continue on Transfer ALPRAZolam [Xanax 0.25 MG (*)] 0.125 - 0.25 mg PO QID PRN 09/06/14 [Last Taken 06/10/16] Albuterol [Proventil Inhaler HFA (*)] 1 - 2 puffs IH Q4 PRN 09/06/14 [Last Taken 01/16/15 06:00] Fluticasone/Salmeter 250/50Mcg [Advair 250/50 (*)] 1 puffs IH BID 09/06/14 [ Last Taken 04/06/16 09:00] Lisinopril [Zestril 10 mg (*)] 10 mg PO DAILY PRN 09/06/14 [Last Taken 05/27/16] Mometasone Furoate Nasal [Nasonex] 2 sprays NASAL BID PRN 01/15/15 [Last Taken 01/16/15 06:00] Tiotropium Inhaler [Spiriva Handihaler] 18 mcg IH DAILY #0 mdi 04/18/16 [Last Taken 06/10/16] Albuterol [Proventil Neb] 3 ml IH PRN PRN 06/10/16 [Last Taken 06/10/16] Budesonide [Budesonide 0.5MG/2Ml Neb (*)] 0.5 mg IH BID 06/10/16 [Last Taken ] Furosemide [Lasix 20 MG (*)] 20 mg PO BID PRN 06/10/16 [Last Taken Unknown] Acetaminophen [Tylenol 325mg (*)] 650 mg PO Q4 PRN #0 tab 06/14/16 [Last Taken Unknown] guaiFENesin/DEXTROMETHORPHAN [Robitussin Dm Oral Liquid (*)] 10 ml PO Q4HRS PRN #0 ml 06/14/16 [Last Taken Unknown] predniSONE [Prednisone] 40 mg PO DAILY #50 tablet 06/14/16 [Last Taken Unknown] Discharge Medications: Refer to the Discharge Home Medication list for PRN reason. - Orders Services needed: Home Care, Registered Nurse, Physical Therapy, Occupational Therapy Home Care Face to Face: I certify that this patient was under my care and that I had the required [id number] encounter meeting the encounter requirements on the discharge day. My findings support the fact that the patient is homebound as defined in CMS Chapter 7 Medicare Benefits Manual 30.1.1, The condition of the patient is such that there exists a normal inability to leave home and consequently, leaving home would require a considerable and taxing effort. - Follow Up Care Current Providers and Referrals: Patient,NotPresent [Unknown] - As per Instructions
--- NOTE | 2016-06-14 12:59 | SOAPPROG ---
SOAP Progress Note Assessment/Plan: Assessment/Plan: * Emphysema- * Acute exac COPD- improved -wean prednisone over 4 weeks time * Influenza A-off tamiflu today * Resp failure-still markedly breathless -wean fio2 * Anxiety-better controlled with increased xanax * Dispo-okay for home from pulmonary standpoint 06/14/16 12:56 Subjective: comfortable. Breathing easier Objective: Vital Signs Temp Pulse Resp BP Pulse Ox 36.9 C 65 30 H 134/71 H 75 L 06/14/16 07:31 06/14/16 08:34 06/14/16 07:31 06/14/16 10:01 06/14/16 10:01 Laboratory Results 06/12/16 05:50 06/12/16 05:50 06/13/16 06/14/16 06/15/16 05:59 05:59 05:59 Intake Total 0 Balance 0 Physical Exam - Physical Exam General Appearance: alert, no apparent distress, moderate distress EENT: normal ENT inspection Neck: non-tender, full range of motion, supple, normal inspection Respiratory: decreased breath sounds, prolonged expiration, No respiratory distress, No wheezing Cardiac/Chest: normal peripheral pulses, regular rate, rhythm Peripheral Pulses: 2+: carotid (R), carotid (L), femoral (R), femoral (L), dorsalis-pedis (R), dorsalis-pedis (L) Abdomen: normal bowel sounds, non-tender, soft Pelvic Exam: deferred Rectal: deferred Neuro/Psych: no motor/sensory deficits, alert, normal mood/affect, oriented x 3 ICD10 Worksheet Patient Problems: Problems Problem Status Onset COPD exacerbation Acute Influenza A Acute COPD exacerbation Acute Chronic obstructive pulmonary disease with acute exacerbation Acute Hip fracture Acute Traumatic compression fracture of T9 thoracic vertebra Acute
[2016-06-14 15:01] VITALS: BP 126/75; TEMP 98.6
--- NOTE | 2016-06-14 15:26 | SOAPPROG ---
SOAP Progress Note Assessment/Plan: Assessment/Plan: * Emphysema- * Acute exac COPD- improved -wean prednisone over 4 weeks time * Chronic Respiratory Failure due to COPD -Non-Invasive Ventilation * Influenza A-off tamiflu today * Resp failure-still markedly breathless -wean fio2 * Anxiety-better controlled with increased xanax * Dispo-okay for home from pulmonary standpoint Objective: Vital Signs Temp Pulse Resp BP Pulse Ox 37.0 C 86 28 H 126/75 H 96 06/14/16 15:00 06/14/16 15:00 06/14/16 15:00 06/14/16 15:00 06/14/16 15:00 Laboratory Results 06/12/16 05:50 06/12/16 05:50 06/13/16 06/14/16 06/15/16 05:59 05:59 05:59 Intake Total 0 Balance 0 ICD10 Worksheet Patient Problems: Problems Problem Status Onset COPD exacerbation Acute Influenza A Acute COPD exacerbation Acute Chronic obstructive pulmonary disease with acute exacerbation Acute Hip fracture Acute Traumatic compression fracture of T9 thoracic vertebra Acute
[2016-06-14 16:28] VITALS: PULSE 85; RESP 20; O2SAT 95
[2016-06-14] MEDS ORDERED: OXYMETAZOLINE 30 ML NASAL SPRAY EACHNARE ONE (17:15)
--- NOTE | 2016-06-14 21:21 | GDS ---
[f rep st] DISCHARGE SUMMARY DISCHARGE DIAGNOSES: 1. Acute on chronic respiratory failure due to chronic obstructive pulmonary disease in the setting of influenza. 2. Influenza A. 3. Anxiety. 4. Osteoporosis. CONSULTANTS: Alejandro Tracy DO. HOSPITAL COURSE: Acute on chronic respiratory failure: The patient was initially admitted to the ntensive care unit due to her severe shortness of breath. She was started on high-dose IV Solu-Medr ol, which has been tapered down to 40 mg of prednisone daily. Patient has been afebrile throughout the hospital stay with improving work of breathing. She contin ues to require supplemental oxygen, which is currently at her baseline. PHYSICAL EXAMINATION: VITAL SIGNS: On day of discharge, blood pressure 134/71, pulse of 80, respir atory rate 22, O2 saturation 95% on 4 L, temperature afebrile. GENERAL: No acute distress. HEART: S1, S2. LUNGS: Diminished breath sounds bilaterally, with very mild wheeze. ABDOMEN: Soft. EXTREMITIES: No edema. LABORATORY DATA: Pertinent labs and studies done this hospital stay: Chest x-ray done on initial p resentation were conducent with air trapping, but no pneumonia. DISCHARGE MEDICATIONS: Please refer to discharge medication reconciliation in [facility]. DISCHARGE INSTRUCTIONS: The patient will be discharged home to complete a prednisone taper where sh akmilla should take 40 mg daily for 1 week, 30 mg the following week, 20 mg for 1 week, then she should be tapered off by her contract administrative assistant. She is also to complete a 5-day course of Tamiflu. She should f ollow up with her primary care provider for routine hospital followup on discharge. /[id number]/MODL
== END 2016-06-14 18:10 | disposition home or self-care (01) | DRG 190 ==
LOC: EDUNIT# → OBSVTOIN 14:04 → F2N 15:15 → F3E 06-12 15:55
PROVIDERS: ADMIT Internal Medicine; ATTEND Family Medicine
DX: J44.1 Chronic obstructive pulmonary disease with (acute) exacerbation (principal); J96.20 Acute and chronic respiratory failure, unspecified whether with hypoxia or hypercapnia; J10.1 Influenza due to other identified influenza virus with other respiratory manifestations; Z87.891 Personal history of nicotine dependence; F41.9 Anxiety disorder, unspecified; I10 Essential (primary) hypertension; M81.0 Age-related osteoporosis without current pathological fracture
CPT/HCPCS: 96374; 97116-GP; 97161-GP; 97165-GO; 97535-GO; G8978-GP-CJ; G8979-GP-CI; G8987-GO-CI; G8988-GO-CI; J1650; J7626